=== PATIENT | female | born 1935 | race Caucasian/White ===

== ENCOUNTER 2018-01-20 11:28 | Day surgery (SDC) ==
[2018-01-20 12:08] VITALS: TEMP 97.2
[2018-01-20] MEDS ORDERED: LIDOCAINE 1% 20 ML MDV ID STA (12:10)
[2018-01-20] MEDS ORDERED: DIPRIVAN 20 ML VIAL IVP ONE (12:15)
[2018-01-20 13:54] VITALS: BP 137/67
--- NOTE | 2018-01-21 14:16 | OP ---
PROCEDURE: COLONOSCOPY TO THE CECUM WITH BIOPSY. ENDOSCOPIST: Kayli LUNDY M.D. INDICATION: DIARRHEA INSTRUMENT: PCFH-190. MEDICATION: PER ANESTHESIA. PROCEDURE: The patient was positioned for colonoscopy. The digital rectal exam was negative. The colonoscope was inserted through the anus and advanced to the cecum. The cecum was identified using the ileocecal valve and the appendiceal orifice as landmarks. The scope was slowly withdrawn through an adequately prepped colon. [place] Bowel Prep Score is 9. The colon was tommy throughout. Biopsies were obtained in the right colon to exclude microscopic colitis. No other abnormalities were noted. The patient tolerated the procedure well without immediate complication. PLAN: 1. Repeat as needed 2. Review pathology 3. Will consider stopping the Metformin giving her diarrhea. MTDD
== END 2018-01-20 14:30 | disposition home or self-care (01) ==
LOC: SURG 11:28
PROVIDERS: ATTEND Internal Medicine Gastroenterology
DX: R19.7 Diarrhea, unspecified (principal)

== ENCOUNTER 2018-07-28 11:25 | Day surgery (SDC) | payer OTHER ==
[2018-07-28] MEDS ORDERED: LIDOCAINE 1% 20 ML MDV ID STA (11:57)
[2018-07-28 12:05] VITALS: TEMP 98.2
[2018-07-28] MEDS ORDERED: LIDOCAINE HCL 2% LUER-JET ONE (13:10)
[2018-07-28] MEDS ORDERED: DIPRIVAN 20 ML VIAL IVP ONE (13:10)
[2018-07-28] MEDS ORDERED: VERSED ONE (13:10)
[2018-07-28 14:32] VITALS: BP 124/67
--- NOTE | 2018-07-29 09:24 | OP ---
PROCEDURE: EGD (ESOPHAGOGASTRODUODENOSCOPY) . ENDOSCOPIST: Kayli LUNDY M.D. INDICATION: ANEMIA INSTRUMENT: GIFH-190. MEDICATION: PER ANESTHESIA. PROCEDURE: The patient was positioned for endoscopy. The oropharynx is intubated with the endoscope and advanced through the oropharynx into the esophagus from there to the duodenum. The duodenum was grossly normal. The pylorus was widely patent. The antrum is normal Retroflex exam reveals a cardia. The esophagus is normal. No evidence for blood loss on this exam. She tolerated this procedure without immediate complication. ASSESSMENT: 1. Normal endoscopy PLAN: 1. We will see her back as needed. [facility]
== END 2018-07-28 14:30 | disposition home or self-care (01) ==
LOC: SURG 11:25
PROVIDERS: ATTEND Internal Medicine Gastroenterology
DX: D64.9 Anemia, unspecified (principal)

== ENCOUNTER 2018-10-17 13:08 | Outpatient (CLI) ==
[2018-10-17] MEDS ORDERED: PROLIA SUBCUT STA (13:18)
[2018-10-17 13:23] VITALS: BP 149/71; TEMP 97.5
== END 2018-10-17 13:09 | disposition home or self-care (01) ==
LOC: OPMED 13:08
PROVIDERS: ATTEND Family Medicine
DX: M81.0 Age-related osteoporosis without current pathological fracture (principal)
CPT/HCPCS: 96372